=== PATIENT | female | born 1955 | race Native Hawaiian/Other Pacific Islander ===

== ENCOUNTER 2021-08-11 08:39 | Outpatient (CLI) | payer BC | END 2021-08-11 19:01 | disposition home or self-care (01) | LOC: RAD 08:39 | PROVIDERS: ATTEND Physician Assistant | DX: M25.562 Pain in left knee (principal) ==

== ENCOUNTER 2021-08-25 10:59 | Outpatient (CLI) | payer BC | END 2021-08-25 20:23 | disposition home or self-care (01) | LOC: MRI 10:59 | PROVIDERS: ATTEND Physician Assistant | DX: S83.232A Complex tear of medial meniscus, current injury, left knee, initial encounter (principal); Y92.9 Unspecified place or not applicable ==

== ENCOUNTER 2022-10-07 08:29 | Outpatient (CLI) | payer BC ==
[2022-10-07 09:18] LABS: PLATELET COUNT 225 K/uL (152-353)
[2022-10-07 09:49] LABS: POTASSIUM 3.9 mmol/L (3.6-5.2)
== END 2022-10-07 20:13 | disposition home or self-care (01) ==
LOC: RAD 08:29
PROVIDERS: ATTEND Obstetrics & Gynecology Gynecology
DX: N95.1 Menopausal and female climacteric states (principal); M85.88 Other specified disorders of bone density and structure, other site; E78.00 Pure hypercholesterolemia, unspecified; R53.83 Other fatigue; E03.8 Other specified hypothyroidism; E34.8 Other specified endocrine disorders; R73.09 Other abnormal glucose
CPT/HCPCS: 36415; 80053; 80061; 82533; 82626; 83036; 84436; 84439; 84443; 84480; 84481; 85027